=== PATIENT | female | born 1970 | race Caucasian/White ===

== ENCOUNTER 2024-05-18 00:24 | Emergency (ER) | payer BC ==
--- OUTSIDE RECORDS SUMMARY | 2024-05-18 00:27 | XMS REPORT | Continuity of Care Document ---
Author Name Unknown Address [address] [facility] [address] [place] [id number] [facility] thconnect Address [address] [facility] 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 Name Role Phone Shanta Palacios Attending Clinician Karon Epifanio Pantoja Attending Clinician Unavailable Dustin Taveras Attending Clinician DR RAY Campuzano Attending Clinician Unavailable Physician, No Primary or Family Admitting Clinic annette Unavailable DR RAY TREVINO Admitting Clinician Unavailable Payers Payer Name Policy Type Policy Number Effective Date Expirati on Date Source Allergies, Adverse Reactions, Alerts Allergy Name Allergy Type Status Severity Reaction(s) Onset Date Inactive Date Treating Clinician Comments Source Penicill ins DA Active [place] SWELLING 2022-12 00:00: 00 [facility] Sulfa (Sulfona mide Antibiot ics) DA Active IA HIVES 2022-12 00:00: 00 [facility] Insulins DA Active U UNKNOWN 08-11 00:00: 00 [facility] Sulfa (Sulfona mide Antibiot ics) DA Active U UNKNOWN 08-11 00:00: 00 [facility] No Known Allergie s DA Active U 05-16 00:00: 00 [facility] No Known Contrast Allergie s DA Active U 05-06 00:00: 00 [facility] No Known Food Allergie s DA Active U 05-06 00:00: 00 [facility] No Known Other Allergie s DA Active U 05-06 00:00: 00 [facility] PENICILL IN DA Active U 05-06 00:00: 00 [facility] SULFA DRUGS DA Active U 05-06 00:00: 00 [facility] Penicill ins DA Active Unknown Rash [facility] Vital Signs Vital Name Observation Time Observation Value Comments S ource Height 2021-01-05 04:25:00 167.64 CM Weight 2021-01-05 04:25:00 79.37 KG Height 2021-01-03 11:43:00 165.1 CM Weight 2021-01-03 11:43:00 74.84 KG Procedures Procedure Date / Time Performed Performing Clinicia n Source DIV RT FOOT SUBQ TISSUE FASCIA OPEN 2021-01-05 00:00:00 [facility] Encounters Start Date/Time End Date/Time Encounter Type Admission Type Attending Clinicians Care Facility Care Department Encounter ID Source 2023-10-17 09:47:20 Emergency OTyree linko [facility] EDCL HCACL [id number] [facility] 2023-10-08 09:22:00 2023-10-08 10:29:00 Emergency EM James Epifanio HCACL AERS [id number] [facility] 2023-08-11 10:52:00 2023-08-11 12:44:00 Emergency EM Shanta Palacios [facility] EDCL AERS [id number] 33 [facility] 2022-05-16 16:23:00 2022-05-16 18:59:00 Emergency EM Dustin Taveras HC[facility]L HCACL [id number] [facility] 2021-01-05 04:23:00 2021-01-05 06:20:00 Outpatient RAY VILLALOBOS [facility] [id number] [facility] Results Test Description Test Time Test Comments Results Resul t Comments Source - XR HAND 3 + V RT 2023-08-11 11:24:00 [facility] Francine : 1970 Sex: F FAX: Tyree Palacios [place]: [place] St: DEP Name: BERLINDANIEL FSED : 1970 Age/S: 53/F [address] [facility] Unit #: [id number] Loc: Sarai Martin [address] Phys: Shanta Palacios MD Acct: [id number] Dis Date: Status: DEP ER PHONE #: Exam Date: 08/11/2023 1116 FAX #: Reason: r hand injury EXAMS: CPT CODE: [id number] XR HAND 3 + V RT [id number] EXAM: Right hand series, 3 views Dictation location: C3 INDICATION: Right hand injury COMPARISON: None. DISCUSSION: Frontal, oblique, and lateral views of the right hand are submitted. There is an oblique and possibly slightly comminuted fracture of the 5th metacarpal neck, with 3 mm volar/medial displacement and slight volar angulation. No bony mass, dislocation, or other fracture is seen. IMPRESSION: 5th metacarpal boxer's fracture. at 1124 Reported and signed by: Dereje Garduno M.D. CC: Shanta Palacios MD Technologist: Ade Parnell RT(R)(CT) Trnscrd Date/Time/By: 08/11/2023 (1124) : By: SheliaBC0 Orig Print D/T: S: 08/11/2023 (6483) PAGE 1 Signed Report - XR HAND 3 + V RT 2023-08-11 11:24:00 [facility] : 1970 Sex: F FAX: Tyree Palacios [place]: [place] St: REG Name: [place] Janes FSED : 1970 Age/S: 53/F [address] [facility] Unit #: [id number] Loc: Sarai Abdul [address] Phys: Shanta Palacios MD Acct: [id number] Dis Date: Status: REG ER PHONE #: Exam Date: 08/11/2023 1116 FAX #: Reason: r hand injury EXAMS: CPT CODE: [id number] XR HAND 3 + V RT [id number] EXAM: Right hand series, 3 views Dictation location: C3 INDICATION: Right hand injury COMPARISON: None. DISCUSSION: Frontal, oblique, and lateral views of the right hand are submitted. There is an oblique and possibly slightly comminuted fracture of the 5th metacarpal neck, with 3 mm volar/medial displacement and slight volar angulation. No bony mass, dislocation, or other fracture is seen. IMPRESSION: 5th metacarpal boxer's fracture. at 1124 Reported and signed by: Dereje Garduno M.D. CC: Shanta Palacios MD Technologist: RT Shantanu(R)(CT) Trnscrd Date/Time/By: 08/11/2023 (1124) : By: SheliaBC0 Orig Print D/T: S: 08/11/2023 (1129) PAGE 1 Signed Report Urine Test Result: NEGATIVEAre internal controls (presence of a control line & clear background) OK? YesLot # of HCG Test Kit: [id number] Date of Kit: 08/30/23Test Performed by: ELY Ramires Perfomed on: 05/16/22UA RFLX MICR CULT IF [id number] 12:17:00* Test Item Value Reference Range Interpretation Comme nts UA COLOR (test code = COLU) YELLOW YEL/STRAW UA APPEARANCE (test code = APPU) CLOUDY CLEAR A UA GLUCOSE DIPSTICK (test co de = DGLUU) NEGATIVE NEGATIVE UA BILIRUBIN DIPSTICK (test code = BILU) NEGATIVE NEGATIVE UA KETONE DIPSTICK (test cod e = KETU) NEGATIVE NEGATIVE UA SPECIFIC GRAVITY (test co de = SGU) 1.010 1.005-1.030 N UA BLOOD DIPSTICK (test code = DAVONTE) 1+ NEGATIVE A UA PH DIPSTICK (test code = DELMAR) 5.0 5.0-7.0 N UA PROTEIN DIPSTICK (test co de = PROU) 1+ NEGATIVE A UA UROBILINIOGEN DIPSTICK (t est code = URO) 0.2 mg/dL 0.2-1.0 UA NITRITE DIPSTICK (test co de = KWAME) NEGATIVE NEGATIVE UA LEUKOCYTE ESTERASE DIPSTI CK (test code = LEUU) 3+ NEGATIVE A UA WBC (test code = WBCU) >50 WBC/HPF 0-3 A UA RBC (test code = RBCU) 4-10 RBC/HPF 0-3 UA WBC NO REFLEX (test code = WBCUCL) >50 WBC/HPF 0-3 A UA BACTERIA (test code = BACU) 1+ /HPF NONE SEEN A UA SQUAMOUS CELLS (test code = SQU) 0-5 /HPF NONE SEEN UA MUCUS (test code = MUCU) TRACE /LPF NONE SEEN CBC W/AUTO [id number] 00:03:00* Test Item Value Reference Range Interpretation Comme nts WHITE BLOOD CELL (test code = WBC) 10.0 K/uL 3.5-11.0 N RED BLOOD CELL (test code = RBC) 4.29 M/uL 3.54-5.02 N HEMOGLOBIN (test code = HGB) 12.8 GM/DL 11.0-15.0 N HEMATOCRIT (test code = HCT) 36.6 % 37.0-47.0 L MEAN CELL VOLUME (test code = MCV) 85.3 fL 81.0-99.0 N MEAN CELL HGB (test code = MCH) 29.8 pg 27.0-31.0 N MEAN CELL HGB CONCETRATION ( test code = MCHC) 35.0 GM/DL 33.0-37.0 N RED CELL DISTRIBUTION WIDTH CV (test code = RDW) 13.1 % 11.5-14.5 N PLATELET COUNT (test code = PLT) 552 K/mm3 150-400 H MEAN PLATELET VOLUME (test c ode = MPV) 9.1 FL 8.8-13.1 N NEUTROPHIL % (test code = NT%) 70.4 % 40.0-76.0 N LYMPHOCYTE % (test code = LY%) 21.7 % 15.0-40.0 N MIXED % (test code = MX%) 7.9 % 3.0-15.0 N NEUTROPHIL # (test code = NT#) 7.0 K/uL 1.8-7.6 N LYMPHOCYTE # (test code = LY#) 2.2 K/uL 1.0-3.8 N MIXED # (test code = MX#) 0.8 k/mm3 0.1-0.8 N LIVER [id number] 17:01:00* Test Item Value Reference Range Interpretation Comme nts TOTAL PROTEIN (test code = PROT) 7.2 GM/DL 5.0-8.0 N Performed by certified depalletizer operator at [facility] ALBUMIN (test code = ALB) 3.7 g/dL 3.4-5.0 N BILIRUBIN TOTAL (test code = BILT) 0.5 MG/DL 0.0-1.0 N SGOT/AST (test code = AST) 28 IUnit/L 15-37 N SGPT/ALT (test code = ALT) 15 IUnit/L 30-65 L GAMMA GLUTAMYL TRANSPEPTIDASE (test code = GGT) 45 UNITS/L 5-85 N ALKALINE PHOSPHATASE TOTAL (test code = ALKP) 118 IUNIT/L 20-125 N AMYLASE (test code = SHERIDAN) 29 UNITS/L 25-125 N UA DIPSTICK [id number] 16:52:00* Test Item Value Reference Range Interpretation Comme nts UA GLUCOSE DIPSTIC POC (test code = GLUUP) NEGATIVE NEGATIVE UA BILIRUBIN DIPSTICK (test code = BILU) NEGATIVE NEGATIVE UA KETONE DIPSTICK POC (test code = KETUP) NEGATIVE NEGATIVE UA SPECIFIC GRAVITY (test code = SGU) 1.020 1.005-1.030 N UA BLOOD DIPSTIC POC (test code = BLUP) 1+ NEGATIVE A Performed by certified depalletizer operator at [facility] UA PH DIPSTIC POC (test code = PHUP) 5 5.0-7.0 N UA PROTEIN DIPSTICK POC (test code = DPROUP) NEGATIVE NEGATIVE UA UROBILINIOGEN QUAL (test code = UROQL) NORMAL 0.2-1.0 UA NITRITE DIPSTICK POC (test code = NITUP) NEGATIVE Negative UA LEUKOCYTE ESTERASE W REFLEX (test code = LEUUR) 2+ NEGATIVE A BASIC METABOLIC [id number] 16:50:00* Test Item Value Reference Range Interpretation Comme nts SODIUM (test code = NA/ABG) 137 MEQ/L 134-147 N POTASSIUM (test code = K/ABG) 3.7 MEQ/L 3.4-5.0 N CHLORIDE (test code = CL/ABG) 101 MEQ/L 100-108 N CREATININE ABG (test code = CREAABG) 0.9 mg/dL 0.6-1.0 N POC IONIZED CALCIUM (test co de = POCCA) 1.09 MMOL/L 1.12-1.32 L POC GLUCOSE (test code = POCGLU) 104 MG/DL POC LACTIC [id number] 16:50:00* Test Item Value Reference Range Interpretation Comme nts POC LACTIC ACID (test code = POCLAC) 0.8 mmol/l 0.9-1.7 L URINE MONOCLONALFB2021-01-05 05:29:00* Test Item Value Reference Range Interpretation Comme nts PREG UR (test code = PGU) NEGATIVE NEGATIVE SCR MAMM BILATERAL AUGUST CAD DIGITAL [id number] 08:48:02- SCR MAMM BILATERAL AUGUST CAD DIGITAL W/AUGMENTATIONBILATERAL DIGITAL SCREENING MAMMOGRAM 3D/2D WITH CAD WITH AUGMENTATION: 12/31/2019CLINICAL: Asymptomatic. Digital breast tomosynthesis was performedin addition to routine CC and MLO views. Current mammographic images were evaluated by either a CONWEAVER M-Vu or a Fruitfulllcker CAD (computer aided detection system). Comparison is made to exam dated 08/07/2012 mammogram - [facility]-. The tissue of both breasts has scattered fibroglandular background echotexture. Bilateral retropectoral implants are seen. A 5 mm oval mass, in the right upper outer quadrant, approximately 7 cm from the nipple.No suspicious mass, architectural distortion, malignant type calcification, or lymph node abnormality detected in the left breast. IMPRESSION: INCOMPLETE: ADDITIONAL IMAGING EVALUATION NEEDEDA 5 mm oval mass, in the right upper outerquadrant, approximately 7 cm from the nipple. Spot compression tomosynthesis and possible ultrasound are recommended at this time.Patrick Bee M.D. ss/:01/03/2020 08:48:02 Occupational Therapist: Jeannie BAKER, [facility]-FWletter sent: Additional Imaging Mammogram BI-RADS: 0 Incomplete: Additional Imaging Evaluation Needed Notes Date/Time Note Provider Source 2023-10-08 09:49:00 [id number] 3PsxS+4vqerAy8zu5fwyrLNrc/B3548-38-65G45:49:00 [facility] ([facility])EMERGENCY PROVIDER REPORTREPORT#:[id number] REPORT STATUS: SignedDATE:10/08/23 TIME: 948 PATIENT: DANIEL SLADE UNIT #: [id number]#: [id number] ROOM/BED:AGE: 53 SEX: F PCP PHYS:SERVICE DT: AUTHOR: Epifanio Ramirez MD * ALL edits or amendments must be made on the electronic/computer document * HPI-Ear Pain/Problem/FB GeneralInitial Greet Date/Time 10/08/23932 PresentationChief Complaint Ear problem L, Pain, Ache Review of Systems Basic Review of SystemsBasic ROS EYES: No redness, RESP: No SOB, CV: No chest pain, GI: No abd pain/vomiting Focused Review of SystemsEars/Nose/ThroatReports: Earache L. Denies: Ear drainage R, Ear drainage L. Past Medical History - AdultStated Complaint EAR PAINAllergiesCoded Allergies:Penicillins (Mild, SWELLING 10/08/23)Sulfa (Sulfonamide Antibiotics) (Mild, HIVES 10/08/23) Pt reports no significant: Past medical history Physical Exam Vital SignsVital SignsFirst Documented: Result Date Time Pulse Ox 100 10/08 946 B/P 146/70 10/08 946 B/P Mean 95 10/08 946 O2 Delivery Room air 10/08 946 Temp 36.6 10/08 946 Pulse 78 10/08 946 Resp 16 10/08 946 Last Documented: Result Date Time Pulse Ox 100 10/08 946 B/P 146/70 10/08 946 B/P Mean 95 10/08 946 O2 Delivery Room air 10/08 946 Temp 36.6 10/08 946 Pulse 78 10/08 946 Resp 16 10/08 946 Review of Vital Signs Reviewed Focused PEGeneral/Const General/Const Awake, Alert, No acute distressEars/Nose/Throat Ears/Nose/Throat Atraumatic, Airway patent, Mucous membranes moist, Pharynx NL Text/Dict Notesleft tm cloudy with bulging MS Neck Neck AtraumaticResp/Chest Respiratory/Chest Atraumatic, Breath sounds NL, Breath sounds = bilat Patient Discharge Departure Vital Signs/ConditionVital SignsFirst Documented: Result Date Time Pulse Ox 100 10/08 946 B/P 146/70 10/08 946 B/P Mean 95 10/08 946 O2 Delivery Room air 10/08 946 Temp 36.6 10/08 946 Pulse 78 10/08 946 Resp 16 10/08 946 Last Documented: Result Date Time Pulse Ox 100 10/08 946 B/P 146/70 10/08 946 B/P Mean 95 10/08 946 O2 Delivery Room air 10/08 946 Temp 36.6 10/08 946 Pulse 78 10/08 946 Resp 16 10/08 946 All vital signs available at the time of this entry have been reviewed. Clinical ImpressionClinical ImpressionPrimary Impression: Otalgia of left ear Disposition DecisionDischarge )( Discharged to Home Yes )( Time 0950 )( Date 10/08/23 Discharge/Care Plan(Auto) PrescriptionsCurrent Visit ScriptsCEFDINIR (OMNICEF) 300 MG PO Q12H CEFDINIR (OMNICEF) 300 MG PO Q12H #14 CAPS LORATADINE/PSEUDOEP ER (CLARITIN D 24 HOUR 10/240 MG) 1 TAB PO DAILY PRN PRN ALLERGIES/CONGESTION LORATADINE/PSEUDOEP ER (CLARITIN D 24 HOUR 10/240 MG) 1 TAB PO DAILY PRN PRN ALLERGIES/CONGESTION #15 TABS Patient Instructions ED Otitis Media Adult Discharge NoteI have spoken with the patient and/or caregivers. I have explained the patient'scondition, diagnoses and treatment plan based on the information available to meat this time. I have answered the patient's and/or caregiver's questions and addressed any concerns. The patient and/or caregivers have as good an understanding of the patient's diagnosis, condition and treatment plan as can beexpected at this point. The vital signs have been stable. The patient's condition is stable and appropriate for discharge from the emergency department. The patient will pursue further outpatient evaluation with the primary care physician or other designated or consulting physician as outlined in the discharge instructions. The patient and/or caregivers are agreeable to this planof care and follow-up instructions have been explained in detail. The patient and/or caregivers have received these instructions in written format and have expressed an understanding of the discharge instructions. The patient and/or caregivers are aware that any significant change in condition or worsening of symptoms should prompt an immediate return to this or the closest emergency department or a call to 911. at 0951RPT #:[id number] OF REPORTEDEmergency department ovsdkw3734-65-37H55:49:00G.[id number] ilable for patient lgnuAEAXWSSQURLGJY5196-19-76F77:51:26 [facility] 2023-08-11 11:07:00 [id number] iXt+Lrm7NLjWizujiqb6OOzPxEBMB Tych6+pC82iVac188AVGWgaAzPH9909-88-19W54:07:00 [facility] ([facility] PROVIDER REPORTREPORT#:[id number] REPORT STATUS: SignedDATE:08/11/23 TIME: 1107 PATIENT: DANIEL SLADE UNIT #: [id number]#: [id number] ROOM/BED:AGE: 53 SEX: F PCP PHYS: No Primary or Family PhysicianSERVICE AUTHOR: Shanta Palacios MD * ALL edits or amendments must be made on the electronic/computer document * HPI-Hand Prob/Inj Free Text HPI NotesFree Text HPI Fzovc74-zllm-whw healthy female presents with right hand injury. Patient reports yesterday she hit her right hand against a door frame. Has taken Aleve for pain. Reports swelling and pain to the ulnar side of hand. GeneralInitial Greet Date/Time 08/11/23 1055 PresentationChief Complaint Hand injury R Review of Systems Focused Review of SystemsMusculoskeletalReports: Extremity pain, Extremity swelling. Past Medical History - AdultStated Complaint RT HAND INJURYAllergiesCoded Allergies:Insulins (UNKNOWN 08/11/23)Sulfa (Sulfonamide Antibiotics) (UNKNOWN 08/11/23) Home MedicationsActive ScriptsPHENAZOPYRIDINE (PYRIDIUM) 200 MG PO TID PRN PRN DYSURIA PHENAZOPYRIDINE (PYRIDIUM) 200 MG PO TID PRN PRN DYSURIA #9 TABS Prov: 05/16/22CEFDINIR (OMNICEF) 300 MG PO Q12H CEFDINIR (OMNICEF) 300 MG PO Q12H #20 CAPS Prov: 05/16/22 Calculated Suicide Risk (nurs) No riskPt reports no significant: Past medical historySmoking status for patients 13 years old or older: Never Smoker Physical Exam Vital SignsVital SignsFirst Documented: Result Date Time Pulse Ox 96 08/11 1053 B/P 127/71 08/11 1053 B/P Mean 89 08/11 1053 O2 Delivery Room air 08/11 1053 Temp 36.8 08/11 1053 Pulse 76 08/11 1053 Resp 16 08/11 1053 Last Documented: Result Date Time Pulse Ox 96 08/11 1053 B/P 127/71 08/11 1053 B/P Mean 89 08/11 1053 O2 Delivery Room air 08/11 1053 Temp 36.8 08/11 1053 Pulse 76 08/11 1053 Resp 16 08/11 1053 Review of Vital Signs Reviewed Focused PEGeneral/Const General/Const Awake, Alert, No acute distress, Well appearingMS Wrist/Hand Text/Dict NoteRight dorsal hand with swelling and tenderness along fourth and fifth metacarpals. Normal cap refill. Median, radial and ulnar nerves intact. Interpretation Diagnostics Lab Results InterpretationResultsRecent Impressions:RADIOLOGY - XR HAND 3 + V RT 08/11 1110 Report Impression - Status: SIGNED Entered: 08/11/2023 1127 IMPRESSION: 5th metacarpal boxer's fracture.Impression By: SheliaBCGail - Dereje Garduno M.D. Procedures Splint Applic - Fx Mgmt #1Procedure Performed by ED physicianPrecise Anatomic Locationright 5th metacarpalCustom Immobilization Fiberglass casts, ulnar gutterPost-Procedure/Complications Cap refill normal, Post splint vascular nl, Post splint neuro nl, Condition improved, Tolerated procedure well, Patient stable Re-Evaluation MDM Free Text MDM NotesFree Text MDM Uvcwf82-qbhw-uik healthy female presents with right hand injury. X-ray with fifth metacarpal fracture. Patient splinted in ulnar gutter splint. Discharge home with pain control, hand follow-up, return precautions, splint care instructions. Patient Discharge Departure Vital Signs/ConditionVital SignsFirst Documented: Result Date Time Pulse Ox 96 08/11 1053 B/P 127/71 / 1053 B/P Mean 89 / 1053 O2 Delivery Room air 08/11 1053 Temp 36.8 / 1053 Pulse 76 09/ 1053 Resp 16 08/11 1053 Last Documented: Result Date Time Pulse Ox 96 08/11 1053 B/P 127/71 09/ 1053 B/P Mean 89 08/11 1053 O2 Delivery Room air 08/11 1053 Temp 36.8 / 1053 Pulse 76 08/11 1053 Resp 16 08/11 1053 All vital signs available at the time of this entry have been reviewed. Clinical ImpressionClinical ImpressionPrimary Impression: Closed fracture of fifth metacarpal bone of right hand Disposition DecisionDischarge )( Discharged to Home Yes )( Time 1203 )( Date 08/11/23 Discharge/Care PlanCounseled Regarding Diagnosis, Imaging studies, Prescriptions, Need for follow-up, When to return to ED(Auto) PrescriptionsCurrent Visit ScriptsACETAMINOPHEN/CODEINE (TYLENOL WITH CODEINE #4 300/60 MG) 1 TAB PO Q4H PRN PRN ACUTE PAIN ACETAMINOPHEN/CODEINE (TYLENOL WITH CODEINE #4 300/60 MG) 1 TAB PO Q4H PRN PRN ACUTE PAIN #15 TABS Patient Instructions ED Closed Hand Fracture (Adult), ED Splint Care, FiberglassReferralsProvider Referral: Janell Jameson MD Follow-Up: Call for appointment Notes: HAND SURGERY Address: [address] [place] [address] Provider Referral: Allegra Renee MD Follow-Up: Call for appointment Notes: HAND SURGERY Address: [address] [facility] [address] [place] [address] Provider Referral: Inez Arora MD Follow-Up: Call for appointment Notes: HAND SURGERY Address: [address] [facility] [address] [place] [address] Provider Referral: Felix Salas Jr, MD Follow-Up: Call for appointment Notes: ORTHOPEDIC SURGERY Address: [address] [address] Provider Group: PRIMARY CARE Follow-Up: 2-3 Days Departure [facility] Discharge NoteI have spoken with the patient and/or caregivers. I have explained the patient'scondition, diagnoses and treatment plan based on the information available to meat this time. I have answered the patient's and/or caregiver's questions and addressed any concerns. The patient and/or caregivers have as good an understanding of the patient's diagnosis, condition and treatment plan as can beexpected at this point. The vital signs have been stable. The patient's condition is stable and appropriate for discharge from the emergency department. The patient will pursue further outpatient evaluation with the primary care physician or other designated or consulting physician as outlined in the discharge instructions. The patient and/or caregivers are agreeable to this planof care and follow-up instructions have been explained in detail. The patient and/or caregivers have received these instructions in written format and have expressed an understanding of the discharge instructions. The patient and/or caregivers are aware that any significant change in condition or worsening of symptoms should prompt an immediate return to this or the closest emergency department or a call to 911. at 1213RPT #:[id number] OF REPORTEDEmerozark health medical center department wyufse4587-44-90C43:07:00G.[id number] ilable for patient wtsuERHJVCPPWLWCIH2849-51-47Z75:13:44 [facility] 2022-05-16 16:30:00 [id number]/Hwtgtj7X GjBK0N6i/0YZ3FcHdeyBPQ2gVG9QuJPC4142-78-72Y40:30: 00 [facility] ([facility] PROVIDER REPORTREPORT#:[id number] REPORT STATUS: SignedDATE:05/16/22 TIME: 1630 PATIENT: DANIEL SLADE UNIT #: [id number]#: [id number] ROOM/BED:AGE: 51 SEX: F PCP PHYS: No Primary or Family PhysicianSERVICE AUTHOR: Dustin Taveras MD * ALL edits or amendments must be made on the electronic/computer document * HPI-Abd Pain F 40 and Over GeneralInitial Greet Date/Time 05/16/22 1627 PresentationChief Complaint Pelvic painHx Obtained From PatientSudden in Onset? NoOnset Occurred One week agoSymptom Duration Since onsetProgression since Onset Unchanged Free Text HPI NotesFree Text HPI NotesPatient presents with lower abdominal pain for 1 week. Started having chills yesterday. Believes she has a UTI. Denies flank pain, no nausea/vomiting. Risk-Abd Pain F 40 and Over)( Abdominal Aortic Aneurysm Risk factors reviewedEctopic Risk factors reviewed Review of Systems ROS StatementsAll systems rev neg except as marked. Focused Review of SystemsConstitutionalReports: Chills, Weakness - generalized. RespiratoryDenies: Cough, non-productive, Cough, productive, Dyspnea on exertion, Hemoptysis, Parox nocturnal dyspnea, Pleuritic pain, Shortness of breath, Wheezing. CardiovascularDenies: Chest pain, Dyspnea on exertion, Edema, Orthopnea, Palpitations, Parox nocturnal dyspnea, Syncope. GIDenies: Abdominal pain, Anorexia, Belching, Bloody/tarry stool, Constipation, Diarrhea, Dysphagia, Hematemesis, Hematochezia, Mucousy stool, Melena, Nausea, Rectal pain, Vomiting. FemaleReports: Pelvic pain. MusculoskeletalDenies: Back pain, Extremity pain, Extremity swelling, Joint pain, Joint swelling, Lumbar pain, Myalgia, Neck pain, Thoracic pain. Additional Review of SystemsHematologicDenies: Adenopathy, Bleeding, Bruising, Petechiae. SkinDenies: Abrasion, Abscess, Burn, Contusion, Diaphoresis, Erythema, Itching, Jaundice, Laceration, Rash, Swelling, Ulceration. Past Medical History - AdultStated Complaint LOWER ABD PAINAllergiesCoded Allergies:No Known Allergies (05/16/22) Physical Exam Vital SignsVital SignsFirst Documented: Result Date Time Pulse Ox 98 05/16 1625 B/P 138/82 05/16 1625 B/P Mean 100 05/16 1625 O2 Delivery Room air 05/16 1625 Temp 38.0 05/16 162 Pulse 96 05/16 1625 Resp 18 05/16 162 Last Documented: Result Date Time Pulse Ox 98 05/16 162 B/P 138/82 05/16 162 B/P Mean 100 05/16 162 O2 Delivery Room air 05/16 1625 Temp 38.0 05/16 162 Pulse 96 05/16 1625 Resp 18 05/16 162 Review of Vital Signs Reviewed Focused PEGeneral/Const General/Const Awake, AlertEyes Eyes PERRL, EOMIEars/Nose/Throat Ears/Nose/Throat Airway patent, Mucous membranes moistResp/Chest Respiratory/Chest Breath sounds NL, Breath sounds = bilat, No respiratory distressCardiovascular Cardiovascular Heart rate NL, Regular rhythm, Heart sounds NLAbdomen/GI Abdomen/GI Soft, No distention Tenderness/Guarding/Rebound Tender suprapubic. Negative: Tender RUQ, Tender LUQ, Tender RLQ, Tender LLQ,Tender epigastric, Tender periumbilical, Tender diffuse, Tender flank R, Tender flank L, Reis's sign positive, McBurney's point tender, Guarding voluntary, Guarding involuntary, Rebound localized, Rebound diffuse, Rigid to palpation. MS Back Back Full range of motionNeurologic Neurologic Oriented X3, Speech NL, No motor deficits, No sensory deficits Interpretation Diagnostics Lab Results InterpretationResultsLaboratory Tests 05/16/22 1630:[Embedded Image Not Available]Laboratory Tests: 05/16 05/16 05/16 05/16 1652 1649 1648 1642 Blood Gas Sodium (134 - 147 MEQ/L) 137 Potassium (3.4 - 5.0 MEQ/L) 3.7 Chloride (100 - 108 MEQ/L) 101 Ionized Calcium (1.12 - 1.32 MMOL/L) 1.09 L Lactic Acid (0.9 - 1.7 mmol/l) 0.8 L Chemistry POC Creatinine (0.6 - 1.0 mg/dL) 0.9 POC Glucose (mg/dL) (MG/DL) 104 Total Bilirubin (0.0 - 1.0 MG/DL) 0.5 GGT (5 - 85 UNITS/L) 45 AST (15 - 37 IUnit/L) 28 ALT (30 - 65 IUnit/L) 15 L Total Alk Phosphatase (20 - 125 IUNIT/L) 118 Total Protein (5.0 - 8.0 GM/DL) 7.2 Albumin (3.4 - 5.0 g/dL) 3.7 Amylase (25 - 125 UNITS/L) 29 Urines Urine Color (YEL/STRAW) YELLOW Urine Appearance (CLEAR) CLOUDY H Urine pH (5.0 - 7.0) 5.0 POC Urine pH (5.0 - 7.0) 5 Ur Specific [place] (1.005 - 1.030) 1.010 1.020 Urine Protein (NEGATIVE) 1+ H POC Urine Protein (NEGATIVE) NEGATIVE Urine Glucose (UA) (NEGATIVE) NEGATIVE POC Ur Glucose (UA) (NEGATIVE) NEGATIVE Urine Ketones (NEGATIVE) NEGATIVE POC Urine Ketones (NEGATIVE) NEGATIVE Urine Blood (NEGATIVE) 1+ H POC Urine Blood (NEGATIVE) 1+ H Urine Nitrite (NEGATIVE) NEGATIVE POC Urine Nitrite (Negative) NEGATIVE Urine Bilirubin (NEGATIVE) NEGATIVE NEGATIVE Urine Urobilinogen (0.2 - 1.0 mg/dL) 0.2 POC Urine Urobilinogen (0.2 - 1.0) NORMAL Ur Leukocyte Esterase (NEGATIVE) 3+ H POC U Leukocyte Esteras (NEGATIVE) 2+ H Urine RBC (0 - 3 RBC/HPF) 4-10 Urine WBC (0 - 3 WBC/HPF) >50 H Ur Squamous Epith Cells (NONE SEEN /HPF) 0-5 Urine Bacteria (NONE SEEN /HPF) 1+ H Urine Mucus (NONE SEEN /LPF) TRACE 05/16 05/16 1630 1259 Hematology WBC (3.5 - 11.0 K/uL) 10.0 RBC (3.54 - 5.02 M/uL) 4.29 Hgb (11.0 - 15.0 GM/DL) 12.8 Hct (37.0 - 47.0 %) 36.6 L MCV (81.0 - 99.0 fL) 85.3 MCH (27.0 - 31.0 pg) 29.8 MCHC (33.0 - 37.0 GM/DL) 35.0 RDW (11.5 - 14.5 %) 13.1 Plt Count (150 - 400 K/mm3) 552 H MPV (8.8 - 13.1 FL) 9.1 Neut % (Auto) (40.0 - 76.0 %) 70.4 Lymph % (Auto) (15.0 - 40.0 %) 21.7 Mixed Cells % (Auto) (3.0 - 15.0 %) 7.9 Neut # (Auto) (1.8 - 7.6 K/uL) 7.0 Lymph # (Auto) (1.0 - 3.8 K/uL) 2.2 Mixed Cells # (0.1 - 0.8 k/mm3) 0.8 Urines Urine HCG, Qual (Negative) NEGATIVE Microbiology: Date/Time Procedure - Status Source Growth 05/16 1655 Blood Culture - COMP BLOOD 05/16 165 Urine Culture - COMP URINE ESCHERICHIA COLI 05/16 162 Blood Culture - COMP BLOOD Lab StatementLaboratory studies reviewed and considered in the medical decision-making. Re-Evaluation MDM Free Text MDM NotesFree Text MDM NotesMeets SIRS criteria with fever and tachycardia. Spsis likely secondary to UTI.Additional [id number] = time of sepsis diagnosis 1720: Following IV fluid resuscitation, I have performed a sepsis focused physical exam. )( Re-Evaluation/Progress #1Text/Dict NoteHemodynamically stable, lactic acid WNL, UA suggestive of UTI. Stable for discharge with oral antibiotics. Scripts provided, labs discussed with patient. Referral for PCP provided. Alethea agrees with discharge. Time of Re-Eval 1745)( Re-Eval Status Improved ED CourseMedication(s) OrderedMedication(s) Ordered:Anti-Infective Agents Sig/Lamonte Start time Last Medication Dose Route Stop Time Status Admin Ceftriaxone Sodium 1,000 MG X1ED STA 05/16 1658 DC 05/16 Sodium Chloride 10 ML IV 05/16 1700 1705 Piperacillin Sod/ 3.375 GM X1ED STA 05/16 1638 CAN Tazobactam Sod IV 05/16 1707 Sodium Chloride 100 ML Central Nervous System Agents Sig/Lamonte Start time Last Medication Dose Route Stop Time Status Admin Ketorolac 30 MG X1ED STA 05/16 1639 DC 05/16 Tromethamine IV 05/16 1640 1707 Acetaminophen 1,000 MG X1ED STA 05/16 1638 DC 05/16 PO 05/16 1639 1703 Electrolytic, Caloric, And Susana Sig/Lamonte Start time Last Medication Dose Route Stop Time Status Admin Sodium Chloride 1,000 ML X1ED STA 05/16 1638 DC 05/16 IV 05/16 1639 1703 Patient Discharge Departure Vital Signs/ConditionVital SignsFirst Documented: Result Date Time Pulse Ox 98 05/16 1625 B/P 138/82 / 1625 B/P Mean 100 05/16 1625 O2 Delivery Room air 05/16 1625 Temp 38.0 05/16 1625 Pulse 96 05/16 1625 Resp 18 05/16 1625 Last Documented: Result Date Time Pulse Ox 98 05/16 1625 B/P 138/82 16 1625 B/P Mean 100 / 1625 O2 Delivery Room air 05/16 1625 Temp 38.0 05/16 1625 Pulse 96 05/16 1625 Resp 18 05/16 1625 All vital signs available at the time of this entry have been reviewed. Condition Stable Clinical ImpressionClinical ImpressionPrimary Impression: CystitisSecondary Impressions: Sepsis Disposition DecisionDischarge )( Discharged to Home Yes )( Time 1833 )( Date 05/16/22 Discharge/Care PlanCounseled Regarding Diagnosis, Lab results, Prescriptions, Need for follow-up, When to return to ED(Auto) PrescriptionsCurrent Visit ScriptsPHENAZOPYRIDINE (PYRIDIUM) 200 MG PO TID PRN PRN DYSURIA PHENAZOPYRIDINE (PYRIDIUM) 200 MG PO TID PRN PRN DYSURIA #9 TABS TAKE AFTER MEALS. CEFDINIR (OMNICEF) 300 MG PO Q12H CEFDINIR (OMNICEF) 300 MG PO Q12H #20 CAPS Patient Instructions Urinary Tract Infections in WomenReferralsProvider Referral: Dereje Camilo MD Follow-Up: Call for appointment Notes: primary care physician Address: [address] [place] [id number] Critical CareTime Spent (minutes): 32Services Performed Patient management by me, Time spent at bedside, Reviewing test results, Reviewing imaging, Discussing patient care, Documentation in recordSeparately billable procedures excluded from time.Patient was critically ill due to:Sepsis secondary to UTIMy treatment and management were:IVF, IV antibiotics CC Note 1Total critical care time [32] minutes. Total critical care time documented does not include time spent on separately billed procedures or the services of residents, students, nurses or physician assistants. I personally saw and examined the patient. I have reviewed all diagnostic interpretations and treatment plans as written. I was present for the diaz portions of any proceduresperformed and the inclusive time noted in any critical care statement. Critical care time includes patient management by me, time spent at the patients bedside,time to review lab and imaging results, discussing patient care, documentation in the medical record, and time spent with the family or caregiver. at 1118RPT #:[id number] OF REPORTCovenant Health [facility] department [id number] ilable for patient [id number] HCACL
[2024-05-18] MEDS ORDERED: MECLIZINE HCL 12.5 MG TAB ONE (02:04)
[2024-05-18] MEDS ORDERED: IBUPROFEN 400 MG TAB ONE (02:04)
[2024-05-18] MEDS ORDERED: ONDANSETRON 4 MG (ODT) TAB ONE (02:04)
[2024-05-18] MEDS ORDERED: TRAMADOL HCL 50 MG TAB ONE (02:05)
--- NOTE | 2024-05-18 03:22 | ER ---
Nurse's Notes [facility] Name: Vickie Rangel Age: 53 yrs Sex: Female : 1970 Arrival Date: 05/18/2024 Time: 00:24 Bed 9 Private MD: Diagnosis: Concussion without loss of consciousness Presentation: 05/18 01:01 Chief complaint: Patient states: "I was working and a box fell and hit me in the face." ss Pt reports some dizziness since incident occurred. No obvious injury noted. Coronavirus screen: Client denies travel out of the [place] in the last 14 days. Ebola Screen: Patient denies exposure to infectious person. Patient denies travel to an Ebola-affected area in the 21 days before illness onset. Mechanism of Injury:. Initial Sepsis Screen: Does the patient meet any 2 criteria? No. Patient's initial sepsis screen is negative. Does the patient have a suspected source of infection? No. Patient's initial sepsis screen is negative. Risk Assessment: Do you want to hurt yourself or someone else? Patient reports no desire to harm self or others. 01:01 Method Of Arrival: Wheelchair 01:01 Acuity: EWA 4 ss Triage Assessment: 01:02 General: Appears in no apparent distress. comfortable, Behavior is calm, cooperative. ss Neuro: Level of Consciousness is awake, alert, obeys commands, Oriented to person, place, time, situation. Historical: - Allergies: 01:02 PENICILLINS; ss 01:02 Sulfa (Sulfonamide Antibiotics); ss - Home Meds: 01:02 None [Active]; ss - PSHx: 01:02 section; Breast augmentation; ss - Immunization history:: Client reports receiving the 2nd dose of the Covid vaccine. - Infectious Disease History:: Denies. - Social history:: Smoking status: Patient denies any tobacco usage or history of. - Family history:: not pertinent. Screenin:40 [facility] ED Fall Risk Assessment (Adult) History of falling in the last 3 months, ss including since admission No falls in past 3 months (0 pts). Abuse screen: Denies threats or abuse. Denies injuries from another. Nutritional screening: No deficits noted. Tuberculosis screening: Never had TB. Assessment: 03:39 Reassessment: Patient appears in no apparent distress at this time. Patient and/or ss family updated on plan of care and expected duration. Pain level reassessed. Patient is alert, oriented x 3, equal unlabored respirations, skin warm/dry/pink. Vital Signs: 01:01 BP 140 / 84; Pulse 71; Resp 15; Temp 98.2(TE); Pulse Ox 100% on R/A; Weight 70.76 kg; ss Height 5 ft. 6 in. ; Pain 2/10; 01:01 Body Mass Index 25.18 (70.76 kg, 167.64 cm) ss 01:01 Pain Scale: Adult ss Baltazar Coma Score: 01:01 Eye Response: spontaneous(4). Motor Response: obeys commands(6). Verbal Response: ss oriented(5). Total: 15. 03:24 Eye Response: spontaneous(4). Motor Response: obeys commands(6). Verbal Response: sp4 oriented(5). Total: 15. 03:26 Eye Response: spontaneous(4). Motor Response: obeys commands(6). Verbal Response: sp4 oriented(5). Total: 15. ED Course: 00:26 Patient arrived in ED. mr 00:29 Tay Cline MD is Attending Physician. sp4 01:02 Triage completed. ss 01:02 Arm band placed on right wrist. ss 01:30 CT Head C Spine In Process Unspecified. EDMS 01:30 CT Facial Bones W/O Con In Process Unspecified. EDMS 02:01 Joy Wilde, ELTON is Primary Nurse. ss 03:21 Mando Ocasio MD is Referral Physician. sp4 03:39 No provider procedures requiring assistance completed. Patient did not have IV access ss during this emergency room visit. 03:40 Patient has correct armband on for positive identification. ss Administered Medications: 02:07 Drug: Ibuprofen PO 800 mg PO once Route: PO; ss 03:41 Follow up: Response: No adverse reaction ss 02:07 Drug: traMADol PO 50 mg PO once Route: PO; ss 03:41 Follow up: Response: No adverse reaction ss 02:07 Drug: Ondansetron PO 4 mg PO once Route: PO; ss 03:41 Follow up: Response: No adverse reaction ss 02:07 Drug: Meclizine PO 25 mg PO once Route: PO; ss 03:41 Follow up: Response: No adverse reaction Outcome: 03:22 Discharge ordered by sp4 03:40 Discharged to home ambulatory, with family, 03:40 Condition: good 03:40 Discharge instructions given to patient, family, Instructed on discharge instructions, follow up and referral plans. medication usage, Demonstrated understanding of instructions, follow-up care, medications, Prescriptions given X 2, 03:41 Patient left the ED. ss Signatures: Dispatcher [employer] EDYaneli Pantoja, Reg Reg Joy Sullivan, ELTON RN Tay Kwan MD MD sp4
--- NOTE | 2024-05-18 03:23 | EDPHYS ---
Physician Documentation [facility] Name: Vickie Rangel Age: 53 yrs Sex: Female : 1970 Arrival Date: 05/18/2024 Time: 00:24 Bed 9 Private MD: ED Physician Tay Cline HPI: 05/18 00:29 This 53 yrs old Female presents to ER via Unassigned with complaints of Head sp4 Injury-Adult. 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 Denied loss of consciousness. Historical: - Allergies: 01:02 PENICILLINS; ss 01:02 Sulfa (Sulfonamide Antibiotics); ss - Home Meds: 01:02 None [Active]; ss - PSHx: 01:02 section; Breast augmentation; ss - Immunization history:: Client reports receiving the 2nd dose of the Covid vaccine. - Infectious Disease History:: Denies. - Social history:: Smoking status: Patient denies any tobacco usage or history of. - Family history:: not pertinent. ROS: 03:24 Constitutional: Negative for fever, chills, and weight loss, positive for headache, sp4 positive for head injury, positive dizziness, positive right-sided facial contusion 03:24 All other systems are negative, Exam: 03:24 Constitutional: This is a well developed, well nourished patient who is awake, alert, sp4 and in no acute distress. Head/Face: Normocephalic, atraumatic. Eyes: Pupils equal round and reactive to light, extra-ocular motions intact. Lids and lashes normal. Conjunctiva and sclera are not injected. Cornea within normal limits. Periorbital areas with no swelling, redness, or edema. ENT: Nares patent. No nasal discharge, no septal abnormalities noted. Tympanic membranes are normal and external auditory canals are clear. Oropharynx with no redness, swelling, or masses, exudates, or evidence of obstruction, uvula midline. Mucous membranes moist. Neck: Trachea midline, no thyromegaly or masses palpated, and no cervical lymphadenopathy. Supple, full range of motion without nuchal rigidity, or vertebral point tenderness. Chest/axilla: Normal chest wall appearance and motion. Nontender with no deformity. No lesions are appreciated. Cardiovascular: Regular rate and rhythm with a normal S1 and S2. No gallops, murmurs, or rubs. Normal PMI, no JVD. No pulse deficits. Respiratory: Lungs have equal breath sounds bilaterally, clear to auscultation and percussion. No rales, rhonchi or wheezes noted. No increased work of breathing, no retractions or nasal flaring. Abdomen/GI: Soft, with normal bowel sounds. No distension or tympany. No guarding or rebound. No evidence of tenderness throughout. Back: No spinal tenderness. No costovertebral tenderness. Skin: Warm, dry with normal turgor. Normal color with no rashes, no lesions, and no evidence of cellulitis. MS/ Extremity: Pulses equal, no cyanosis. Neurovascular intact. Full, normal range of motion. Neuro: Awake and alert, GCS 15, oriented to person, place, time, and situation. Cranial nerves II-XII grossly intact. Motor strength 5/5 in all extremities. Sensory grossly intact. Psych: Awake, alert, with orientation to person, place and time. Behavior, mood, and affect are within normal limits Vital Signs: 01:01 BP 140 / 84; Pulse 71; Resp 15; Temp 98.2(TE); Pulse Ox 100% on R/A; Weight 70.76 kg; ss Height 5 ft. 6 in. ; Pain 2/10; 01:01 Body Mass Index 25.18 (70.76 kg, 167.64 cm) 01:01 Pain Scale: Adult ss Eldon Coma Score: 01:01 Eye Response: spontaneous(4). Motor Response: obeys commands(6). Verbal Response: ss oriented(5). Total: 15. 03:24 Eye Response: spontaneous(4). Motor Response: obeys commands(6). Verbal Response: sp4 oriented(5). Total: 15. 03:26 Eye Response: spontaneous(4). Motor Response: obeys commands(6). Verbal Response: sp4 oriented(5). Total: 15. MDM: 01:00 Patient medically screened. sp4 03:17 ED course: EXAM DESCRIPTION: Head C Spine Mpr Wo Con 05/18/2024 3:09 AM CDT CLINICAL sp4 HISTORY: 53 years, Female, CT facial bones COMPARISON: None FINDINGS: Multiple transaxial tomograms of the brain were obtained from the base of the skull to the vertex without contrast. An individualized dose optimization technique, Automated Exposure Control, was utilized for the performed procedure. Brain: Brain parenchyma as well as the elmore-white matter differentiation demonstrate to be within normal limits. There is no evidence for acute intraparenchymal hemorrhage. There is no midline shifts and/or mass effect. No focal areas of hypodensities. Ventricles: Lateral ventricles and cisterns displace normal appearance. Vasculature: No visualized abnormalities in the arteries or dural venous sinuses. Scalp/skull: The calvarium demonstrate to be intact with no evidence for acute bony injuries. Sinuses: The visualized paranasal sinuses and mastoid air cells demonstrate to be clear. Orbits: No significant abnormalities in the visualized orbital structures. IMPRESSION: No evidence for acute traumatic injury to the head. Unremarkable CT scan of the head without contrast. Electronically signed by: Juan Pablo Rice MD 05/18/2024 03:09 AM. 03:18 ED course: PROCEDURE: Multiple transaxial tomograms of the Maxillofacial bones were sp4 performed utilizing 2 mm slice thickness at 2 mm interval reconstruction. In addition 2-D multiplanar reconstructions in the coronal and sagittal plane were performed and reviewed. An individualized dose optimization technique, Automated Exposure Control, was utilized for the performed procedure. FINDINGS: The paranasal sinuses, nasal bones, orbital wall, zygomatic bones, temporomandibular joints, and mandible demonstrate to be within normal limits. No evidence for acute bony injuries.. The globes, intraconal and extraconal elements demonstrate to be within normal limits.. Superior medial and inferior turbinates are grossly unremarkable. Nasopharynx demonstrate clear. No focal masses were demonstrated. The rest of the soft tissue and bony structures are grossly unremarkable. No evidence for significant lymphadenopathy and/or masses. IMPRESSION: No evidence for acute bony injuries of the maxillofacial bones. Unremarkable CT scan of the maxillofacial bones with contrast. . 03:26 Differential diagnosis: Contusion of Hematoma on Intracranial bleed- Concussion sp4 cerebral contusion. Data reviewed: vital signs, nurses notes, radiologic studies, CT scan. ED course: Normal. Patient stable for discharge home. Will recommend work release for 3 days . 05/18 00:47 Order name: CT Head C Spine sp4 05/18 00:48 Order name: CT Facial Bones W/O Con sp4 Administered Medications: 02:07 Drug: Ibuprofen PO 800 mg PO once Route: PO; ss 03:41 Follow up: Response: No adverse reaction ss 02:07 Drug: traMADol PO 50 mg PO once Route: PO; ss 03:41 Follow up: Response: No adverse reaction ss 02:07 Drug: Ondansetron PO 4 mg PO once Route: PO; ss 03:41 Follow up: Response: No adverse reaction ss 02:07 Drug: Meclizine PO 25 mg PO once Route: PO; ss 03:41 Follow up: Response: No adverse reaction ss Disposition Summary: 05/18/24 03:22 Discharge Ordered Notes: Location: Home sp4 Problem: new sp4 Symptoms: have improved sp4 Condition: Stable sp4 Diagnosis - Concussion without loss of consciousness sp4 Followup: sp4 - With: Mando Ocasio MD - When: 7 - 10 days - Reason: Recheck today's complaints Discharge Instructions: - Discharge Summary Sheet sp4 - Concussion, Adult, [id number] sp4 Forms: - Work release form sp4 - Patient Portal Instructions sp4 Prescriptions: - Ibuprofen 800 mg Oral Tablet - take 1 tablet ORAL route every 8 hours As needed take with food; 30 tablet; sp4 Refills: 0, Product Selection Permitted - ondansetron 8 mg Oral Tablet,disintegrating - take 1 tablet ORAL route every 8 hours PRN nausea; 30 tablet; Refills: 0, sp4 Product Selection Permitted Signatures: Dispatcher [employer] Joy Wolf RN RN ss Potepalov, Sergey, MD MD sp4 Corrections: (The following items were deleted from the chart) 00:48 00:48 Head C Spine MPR Wo Con+CT.RAD.BRZ ordered. EDMS EDMS
[2024-05-18 04:05] VITALS: BP 140/84; TEMP 98.2; O2SAT 100
--- NOTE | 2024-05-18 13:28 | RAD REPORT ---
EXAM DESCRIPTION: CT - Head C Spine Mpr Wo Con - 05/18/2024 7:03 am CLINICAL HISTORY: 53 years, Female, CT facial bones COMPARISON: None FINDINGS: Multiple transaxial tomograms of the brain were obtained from the base of the skull to the vertex without contrast. An individualized dose optimization technique, Automated Exposure Control, was utilized for the perfo rmed procedure. Brain: Brain parenchyma as well as the elmore-white matter differentiation demonstrate to be within nor mal limits. There is no evidence for acute intraparenchymal hemorrhage. There is no midline shifts an d/or mass effect. No focal areas of hypodensities. Ventricles: Lateral ventricles and cisterns displace normal appearance. Vasculature: No visualized abnormalities in the arteries or dural venous sinuses. Scalp/skull: The calvarium demonstrate to be intact with no evidence for acute bony injuries. Sinuses: The visualized paranasal sinuses and mastoid air cells demonstrate to be clear. Orbits: No significant abnormalities in the visualized orbital structures. IMPRESSION: No evidence for acute traumatic injury to the head. Unremarkable CT scan of the head without contrast. Electronically signed by: Juan Pablo Rice MD 05/18/2024 03:09 AM CDT Due to temporary technical issues with the PACS/Fluency reporting system, reports are being signed by the in house radiologists without review as a courtesy to insure prompt reporting. The interpreting radiologist is fully responsible for the content of the report.
--- NOTE | 2024-05-18 13:30 | RAD REPORT ---
EXAM DESCRIPTION: CT - Facial Bones W/ Mpr - 05/18/2024 7:02 am CLINICAL HISTORY: 53 years, Female, head and face injury COMPARISON: None TECHNIQUE: Multiple transaxial tomograms of the Maxillofacial bones were performed utilizing 2 mm sl ice thickness at 2 mm interval reconstruction. In addition 2-D multiplanar reconstructions in the cor onal and sagittal plane were performed and reviewed. An individualized dose optimization technique, Automated Exposure Control, was utilized for the perfo rmed procedure. FINDINGS: The paranasal sinuses, nasal bones, orbital wall, zygomatic bones, temporomandibular joint s, and mandible demonstrate to be within normal limits. No evidence for acute bony injuries.. The globes, intraconal and extraconal elements demonstrate to be within normal limits.. Superior medial and inferior turbinates are grossly unremarkable. Nasopharynx demonstrate clear. No focal masses were demonstrated. The rest of the soft tissue and bony structures are grossly unre markable. No evidence for significant lymphadenopathy and/or masses. IMPRESSION: No evidence for acute bony injuries of the maxillofacial bones. Unremarkable CT scan of the maxillofacial bones with contrast. Electronically signed by: Juan Pablo Rice MD 05/18/2024 03:12 AM CDT Due to temporary technical issues with the PACS/Fluency reporting system, reports are being signed by the in house radiologists without review as a courtesy to insure prompt reporting. The interpreting radiologist is fully responsible for the content of the report.
== END 2024-05-18 03:41 | disposition home or self-care (01) ==
LOC: ER 00:24
DX: S06.0X0A Concussion without loss of consciousness, initial encounter (principal); W22.8XXA Striking against or struck by other objects, initial encounter; Y92.512 Supermarket, store or market as the place of occurrence of the external cause; Y99.0 Civilian activity done for income or pay
CPT/HCPCS: 70450; 72125; 70486; 76377; J8597; Q0162